=== PATIENT | male | born 1975 | race Caucasian/White ===

== ENCOUNTER 2017-03-30 16:00 | Observation (INO) ==
[2017-03-30] MEDS ORDERED: Naloxone 0.4 MG/ML INJ IVP PRN (17:47)
[2017-03-30] MEDS ORDERED: Ondansetron 4 MG/2 ML VIAL IVP PRN (17:47)
[2017-03-30] MEDS ORDERED: Acetaminophen 325 MG TABLET PO PRN (17:47)
[2017-03-30] MEDS ORDERED: *HR* Morphine 2 MG/ML SYRINGE IVP PRN (17:53)
[2017-03-30] MEDS ORDERED: 0.9 % Sodium Chloride 1,000 ML IVC SCH ×2 (18:00→18:45)
--- NOTE | 2017-03-30 18:50 | Internal Med History&Physical ---
<Dorcas Amaral M - Last Filed: 03/30/17 18:38> Date of Encounter: 03/30/17 Time of Encounter: 18:38 Assessment and Plan (1) Atrial fibrillation Current visit: Yes Status: Acute Patient had syncopal episode today preceded by palpitations and lightheadedness. He was found to be in Afib at [place] ED. Troponin negative at 0.00. Patient converted on his own. He reports only drinking one bottle of water a day and having high caffeine intake with mostly mountain dew the rest of the day. Dehydration and excessive caffeine likely impetus of afib. Patient encouraged to increase water intake and decrease caffeine. Patient's HR still running high in the 90s-low 100s. Will start cardizem 30mg PO [id number]. Cardiology consulted. Continuous patient monitor. Echocardiogram. Qualifiers: Atrial fibrillation type: unspecified Qualified Code(s): I48.91 - Unspecified atrial fibrillation (2) Syncope Current visit: Yes Status: Acute Patient had syncopal episode today preceded by palpitations and lightheadedness. He was found to be in afib at [place] ED. Syncope secondary to arrhythmia/afib. Qualifiers: Syncope type: unspecified Qualified Code(s): R55 - Syncope and collapse (3) Facial trauma Current visit: Yes Status: Acute [place] [facility] during syncopal episode today. CT of head showed acute fractures of left lateral and inferior orbital santana and multiple fractures of left maxillary sinus. ENT consulted. Augmentin for sinusitis prophylaxis. Qualifiers: Encounter type: initial encounter Qualified Code(s): S09.93XA - Unspecified injury of face, initial encounter (4) BRANDON (acute kidney injury) Current visit: Yes Status: Acute Creatinine of 1.33. Patient reports history of kidney stones, most recently 4 years ago, but denies any CKD. He reports drinking only one bottle of water a day followed by mostly Mountain Dew. Likely secondary to dehydration. Patient got 1L bolus at [place] ED. Will give 0.9NS at 100ML/hr overnight. Recheck chemistry in the morning. Patient encouraged to increase water intake and decrease [place] Dew intake. (5) DVT prophylaxis Current visit: Yes Status: Acute anti-embolic stockings. Patient with facial trauma. Will not start anticoagulation due to risk of increasing bleeding or hematoma. Internal Medicine - H&P: HPI Chief complaint: syncope Admitted From: Hospital to Hospital Transfer Plans for Post Hospital Care: Home History of present illness: Mr. Abraham is a 41 year old male with history of kidney stones presented to [place] ED after suffering a syncopal episode at home. Patient reports he was walking in his kitchen when he felt palpitations and lightheadedness, he lost consciousness and fell, hitting his face on the kitchen island. He denies any symptoms prior to this episode. He was unconscious for about 30 seconds, and when he came to, he felt a little "out of it". He denies any chest pain, shortness of breath, fever, chills, nausea, vomiting. Evaluation at [place] included a head CT which showed no acute intracranial hemorrhage, acute fractures of the left lateral and inferior orbital santana and multiple fractures of the left maxillary sinus. He had a laceration under his left eye which was sutured and addressed at the [place] ED. EKG showed atrial fibrillation, which is a new diagnosis for patient. Troponin was negative at 0.00. Creatinine was elevated at 1.33. Patient converted to sinus tachycardia at [place] and he was given 1L fluid bolus. On exam, patient alert and oriented in no acute distress. Heart with regular rate and rhythm. Lungs clear to auscultation bilaterally. No peripheral edema. Left facial swelling and ecchymosis with sutured laceration under left eye. Past Med Surg Social Fam HX - Past Medical History Medical history: kidney stones Psychiatric history: no psych history - Past Surgical History Surgical History: other - Social History Smoking Status: Never smoker Smokeless Tobacco Status: No Alcohol use: none Drug use: none - Family History Mother Hx Family Endocrine Disorder: Yes (DM2) Father Living Status: Still Living Internal Medicine - H&P: Meds Amoxicillin/Clavulanate [Augmentin] 875 mg PO BIDWM #8 tablet 03/31/17 [Rx] Aspirin Enteric Coated [Aspirin EC] 81 mg PO DAILY #30 tablet. 03/31/17 [Rx] HYDROcodone/Acet 5/325 mg [[place] 5-325 mg] 1 tab PO Q6H PRN #7 tab 03/31/17 [Rx] 3 Allergy/AdvReac Type Severity Reaction Status Date / Time No Known Allergies Allergy Verified 09/21/17 12:21 All Systems PM: A 10-system review of systems was performed and is negative for pertinent findings except as documented above in the HPI. - Constitutional Constitutional: no chills, no fever(s), no night sweats - EENT Eyes: no change in vision, no discharge, no pain, no photophobia Ears: no ear discharge, no ear pain, no tinnitus Nose, mouth and throat: no dysphagia, no nasal discharge, no neck pain, no sore throat - Cardiovascular Cardiovascular ROS IM: lightheadedness, palpitations, syncope, no chest pain, no diaphoresis, no dyspnea - Respiratory Respiratory: no cough, no dyspnea, no wheezing, no excessive phlegm production - Gastrointestinal Gastrointestinal: no abdominal pain, no diarrhea, no hematemesis, no hematochezia, no melena, no nausea, no vomiting - Musculoskeletal Musculoskeletal ROS IM: no numbness, no tingling - Integumentary Integumentary IM: no rash, no unusual bruising - Neurological Neurological ROS: no confusion, no convulsions, no focal weakness, no numbness, no tingling, no tremor(s) - Hematologic/Lymphatic Hematologic/Lymphatic: no easy bruising - Head Head exam: Present: normocephalic Additional comments: swelling and ecchymosis under left eye with sutured laceration. - Eye Eye exam: Present: PERRL, conjuntiva pink, sclera anicteric Pupils: Present: PERRL - Neck Neck exam general surgery: Present: supple, trachea midline. Absent: lymphadenopathy - Respiratory Respiratory exam: Present: CTAB. Absent: accessory muscle use, rales, rhonchi, wheezes - Cardiovascular Cardiovascular exam: Present: RRR, +S1, +S2. Absent: diastolic murmur, gallop, rubs, systolic murmur - GI/Abdominal GI/Abdominal exam: Present: normal bowel sounds, soft, no peritoneal signs. Absent: distended, tenderness - Extremities Exam Extremities exam: Present: warm, radial pulses palpable and symmetrical. Absent : calf tenderness, cyanotic, pedal edema - Neurological Exam Neurological exam: Present: CN II-XII intact, oriented X3, no focal deficits. Absent: pronater drift, facial droop, speech deficit - Skin Skin exam: Present: dry, intact Internal Med - H&P Results - Labs Labs: Labs from [facility]: Hgb 14.6 Hct 42.7 wbc 6.5 Plt 246 Na 140 K 3.4 Cl 105 CO2 25 BUN 17 Cr 1.33 Glu 124 trop 0.00 D-dimer 626 <Jermain Poole - Last Filed: 03/31/17 18:46> Date of Encounter: 03/31/17 Internal Medicine - H&P: HPI History of present illness: Mr. Abraham is a 41 year old male All Systems PM: A 10-system review of systems was performed and is negative for pertinent findings except as documented above in the HPI. - Constitutional Vitals: Temp Pulse Resp BP Pulse Ox 98.3 F 83 16 148/91 95 03/31/17 17:03 03/31/17 17:03 03/31/17 17:03 03/31/17 17:03 03/31/17 17:03 Internal Med - H&P Results - Labs CBC & Chem 7: 03/31/17 05:22 03/31/17 05:22 Labs: Short CBC 03/31/17 Range/Units 05:22 WBC 8.1 (4.3-11.1) K/mcL Hgb 13.5 (12.9-16.9) g/dL Hct 42.0 (37.5-50.1) % Plt Count 223 (140-400) K/mcL Neutrophils # 5.5 (1.6-8.9) K/mcL BMP 03/31/17 05:22 Sodium 140 Potassium 4.2 Chloride 107 Carbon Dioxide 26 BUN 16 Creatinine 1.22 Glucose 107 H Calcium 9.2 - Attending Attestation I have personally performed a face to face evaluation on this patient and I discussed the assessment and plan with the nurse practitioner. I have reviewed and agree with the documented care plan. History and Exam by me shows: Mr. Abraham is a 41 year old male with history of kidney stones presented to [place] ED after suffering a syncopal episode at home. Patient reports he was walking in his kitchen when he felt palpitations and lightheadedness, he lost consciousness and fell, hitting his face on the kitchen island. He denies any symptoms prior to this episode. He was unconscious for about 30 seconds, and when he came to, he felt a little "out of it". He denies any chest pain, shortness of breath, fever, chills, nausea, vomiting. Evaluation at [place] included a head CT which showed no acute intracranial hemorrhage, acute fractures of the left lateral and inferior orbital santana and multiple fractures of the left maxillary sinus. He had a laceration under his left eye which was sutured and addressed at the [place] ED. EKG showed atrial fibrillation, which is a new diagnosis for patient. Troponin was negative at 0.00. Creatinine was elevated at 1.33. Patient converted to sinus tachycardia at [place] and he was given 1L fluid bolus. Now pt is in NSR. Gen: A, A, O x 3 Chest : Diminished BS b/l, no crackles, rales Heart : S1 S2 + RRR No murmurs Face : Bruise over Left maxilla region a/p 1. New onset A fib mostly due to stress stop drinking sodas will place him on Cardizem 30mg Q6hr for now CHADSVASC2 score 0.. No anti coag needed other than ASA 2. Left Maxilla and Orbital floor fx ENT consulted
[2017-03-30] MEDS: *HR* HYDROcodone/Acet 5/325 mg TABLET PO PRN (19:46)
[2017-03-31] MEDS: *HR* HYDROcodone/Acet 5/325 mg TABLET PO PRN ×2 (05:16→13:38)
[2017-03-31 05:56] LABS: Basophils % 0.4 %; Eosinophils # 0.1 K/mcL (0.0-0.6); Hemoglobin 13.5 g/dL (12.9-16.9); Immature Granulocytes % 0.5 % (0-4); Lymphocytes # 1.7 K/mcL (0.6-4.6); Lymphocytes % 21.1 %; Mean Corpuscular HGB Conc 32.1 g/dL (31.6-35.5); Mean Corpuscular Volume 80.9 fL (83.0-100.0); Mean Platelet Volume 10.8 fL (9.4-12.4); Monocytes # 0.7 K/mcL (0.0-1.3); Monocytes % 8.7 %; Neutrophils # 5.5 K/mcL (1.6-8.9); Platelet Count 223 K/mcL (140-400); Red Blood Count 5.19 M/mcL (4.19-5.50); Red Cell Distribution Width 12.4 % (11.5-14.5); Segmented Neutrophils % 68.3 %
[2017-03-31 06:19] LABS: BUN/Creatinine Ratio 13 (6-26); Blood Urea Nitrogen 16 mg/dL (8-26); Calcium 9.2 mg/dL (8.6-10.8); Carbon Dioxide 26 mEq/L (19-29); Chloride 107 mEq/L (98-109); Chol/HDL Ratio 6.6 (0-4.9); Cholesterol 190 mg/dL (< 200); Glucose 107 mg/dL (70-99); HDL Cholesterol 29 mg/dL (40-59); LDL Cholesterol,Calculated 124 mg/dL (0-99); Osmolality,Calculated 292 (280-300); Potassium 4.2 mEq/L (3.5-4.5); Sodium 140 mEq/L (136-145); Triglycerides 185 mg/dL (< 150); eGFR For African Americans > 60 (> 60); eGFR For Non-African Americans > 60 (> 60)
--- NOTE | 2017-03-31 09:50 | Internal Med Progress Note ---
<Tati Hartman - Last Filed: 03/31/17 15:53> Date of Encounter: 03/31/17 Time of Encounter: 09:50 - Assessment and plan (1) Atrial fibrillation with RVR Current Visit: Yes Status: Acute Assessment and plan: EKG Afib in ED On telemetry, NSR CHADVASC SCORE - 0 No family history of structural heart disease, sudden or arrhythmia according to pt PLAN: Cardiology on consult, appreciate recs Recommend aspirin 81 mg. Cardio Discussed with ENT, no contraindication to aspirin. TTE pending (2) Syncope Current Visit: Yes Status: Acute Assessment and plan: Syncope with a history of vasovagal syncope and endorsed dehydration and strenuous however atrial fibrillation with RVR on EKG in ED. 24 monitor review shows NSR. No bradycardia or recurrent afib seen on telemetry. AVg HR 86 bpm. Cardio on consult, recommend TTE to assess for structural heart disease. Qualifiers: Syncope type: unspecified Qualified Code(s): R55 - Syncope and collapse (3) Facial trauma Current Visit: Yes Status: Acute Assessment and plan: Left maxillary and orbital nondisplaced fractures secondary to fall due to new onset A fib. Suture laceration in place in L periorbital area, pain at 1/10 Pain currently well controlled. PLAN: ENT on consult, appreciate recs Will continue Augmentin, per recs Qualifiers: Encounter type: initial encounter Qualified Code(s): S09.93XA - Unspecified injury of face, initial encounter (4) BRANDON (acute kidney injury) Current Visit: Yes Status: Acute (5) DVT prophylaxis Current Visit: Yes Status: Acute Assessment and plan: Intermittent compression devices - Subjective Interval history: Patient denies any palpitations. No chest pain. No N/V. Endorses L facial tenderness by periorbital area, rated at a 1/10. States he has also had syncopes associated with dehydration and emotional stress. Asks when he could go home. - Constitutional Vitals: Temp Pulse Resp BP Pulse Ox 98.0 F 71 16 125/75 98 03/31/17 08:17 03/31/17 08:17 03/31/17 08:17 03/31/17 08:17 03/31/17 08:17 General appearance: Present: cooperative, A&O X 3 - Head Head exam: Present: atraumatic, normocephalic - ENT Additional comments: Left periorbital facial swelling and ecchymosis and surrounding erythema. Sutures in place with no oozing, no drainage. EOM without pain. - Respiratory Respiratory exam: Present: CTAB. Absent: accessory muscle use, rales, rhonchi, wheezes - Cardiovascular Cardiovascular exam: Present: RRR, +S1, +S2. Absent: diastolic murmur, gallop, rubs, systolic murmur, tachycardia - GI/Abdominal GI/Abdominal exam: Present: normal bowel sounds, soft, no peritoneal signs. Absent: distended, tenderness Internal Medicine: Result - Labs CBC & Chem 7: 03/31/17 05:22 03/31/17 05:22 Labs: Short CBC 03/31/17 Range/Units 05:22 WBC 8.1 (4.3-11.1) K/mcL Hgb 13.5 (12.9-16.9) g/dL Hct 42.0 (37.5-50.1) % Plt Count 223 (140-400) K/mcL Neutrophils # 5.5 (1.6-8.9) K/mcL BMP 03/31/17 05:22 Sodium 140 Potassium 4.2 Chloride 107 Carbon Dioxide 26 BUN 16 Creatinine 1.22 Glucose 107 H Calcium 9.2 - Impressions EXAMINATION: CT OF THE HEAD WITHOUT CONTRAST 03/30/2017 12:34 pm TECHNIQUE: CT of the head was performed without the administration of intravenous contrast. Dose modulation, iterative reconstruction, and/or weight based adjustment of the mA/kV was utilized to reduce the radiation dose to as low as reasonably achievable. COMPARISON: None HISTORY: ORDERING SYSTEM PROVIDED HISTORY: trauma Recent syncope, acute symptoms, initial study FINDINGS: BRAIN/VENTRICLES: There is no acute intracranial hemorrhage, mass effect or midline shift. No abnormal extra-axial fluid collection. The nair-white differentiation is maintained without evidence of an acute infarct. There is no evidence of hydrocephalus. ORBITS: There are nondisplaced fractures of the lateral left orbital wall. There is associated extraconal air on the left. There is a hairline fracture of the left zygomaticofrontal bone. There are fractures of the left orbital floor, without significant depression. SINUSES: There is layering blood within the left maxillary sinus. There are comminuted fractures of the anterior left maxillary wall. There is a displaced fracture of the lateral left maxillary wall. There is a mildly displaced fracture of the medial left maxillary wall. SOFT TISSUES/SKULL: There is air within the soft tissues of the left face and temporal region, related to recent facial fractures. No acute calvarial fracture. CT/CT head/brain wo con IMPRESSION: 1. No intracranial hemorrhage. 2. Acute fractures of the left lateral and inferior orbital santana, as well as multiple fractures of the left maxillary sinus. No significant depression of the orbital wall fracture. 3. Layering blood in the left maxillary sinus. 4. Left facial laceration. D/ / 03/30/2017 13:05:17 Osvaldo Kim MD / Yuridia Abraham Interpreting Provider: Osvaldo Kim MD INATION: SINGLE VIEW OF THE CHEST 03/30/2017 12:34 pm COMPARISON: None. HISTORY: ORDERING SYSTEM PROVIDED HISTORY: new a fib Passed out while taking at lunch break still feels funny. History of AFib. FINDINGS: Cardiomediastinal silhouette is within normal limits. No pneumothorax or effusion. The lungs are clear. No acute osseous abnormality. XR/XR chest 1V portable IMPRESSION: No acute cardiopulmonary disease. D/ / Sterling Loyd MD / Sterling Loyd MD Interpreting Provider: Sterling Loyd MD Consult Discharge Plan - Plan Referrals: Colin Doherty DO [Partnered Physician] - (Follow up with ENT as needed) Kira Yang MD [Primary Care Provider] - 04/03/17 3:00 pm ( ) <Keith Victoria - Last Filed: 03/31/17 17:25> Date of Encounter: 03/31/17 - Constitutional Vitals: Temp Pulse Resp BP Pulse Ox 98.3 F 83 16 148/91 95 03/31/17 17:03 03/31/17 17:03 03/31/17 17:03 03/31/17 17:03 03/31/17 17:03 Internal Medicine: Result - Labs CBC & Chem 7: 03/31/17 05:22 03/31/17 05:22 Labs: Short CBC 03/31/17 Range/Units 05:22 WBC 8.1 (4.3-11.1) K/mcL Hgb 13.5 (12.9-16.9) g/dL Hct 42.0 (37.5-50.1) % Plt Count 223 (140-400) K/mcL Neutrophils # 5.5 (1.6-8.9) K/mcL BMP 03/31/17 05:22 Sodium 140 Potassium 4.2 Chloride 107 Carbon Dioxide 26 BUN 16 Creatinine 1.22 Glucose 107 H Calcium 9.2 - Attending Attestation I examined this patient and my medical decision-making was reviewed with the Resident Physician. I agree with the documented findings, disposition and treatment plan as described except to the extent set forth below. Cardiology input appreciated. ENT input appreciated. We will follow the recommendations from specialist.
--- NOTE | 2017-03-31 11:22 | Cardiology Consult Note ---
<Zeeshan Flores - Last Filed: 03/31/17 13:37> Date of Encounter: 03/31/17 Time of Encounter: 11:13 Assessment and Plan (1) Atrial fibrillation with RVR Current Visit: Yes Status: Acute Unknown duration. Converted on his own. Now NSR. Agree with oral cardizem. CHADS VASc=0. Recommend aspirin 81 mg. Discussed with ENT, no contraindication to aspirin. Check TTE. TSH normal. Potassium 3.4 and now 4.0. Further recommendations after TTE. (2) Syncope Current Visit: Yes Status: Acute Likely due to combination of atrial fibrillation with RVR and hypovolemia d/t poor water intake. He only drinks soda. History of vasovagal syncopy. Recommend increase water intake. Decrease caffeine. He converted to NSR. 24 monitor review shows NSR. No bradycardia or pauses. No VT. No recurrent afib. AVg HR 86 bpm. Will check TTE to assess for structural heart disease. Qualifiers: Syncope type: unspecified Qualified Code(s): R55 - Syncope and collapse Discussion w patient/family: The assessment and plan as outlined above was discussed with the patient and/or family members who expressed understanding and agreement. All questions were answered. Thank you for involving us in the care of your patient. Please call with any questions. History of Present Illness Consult date: 03/31/17 Requesting physician: Keya Scott Consult reason: syncope, new afib Chief complaint: Syncope History of present illness: Mr. Abraham is a 41 year old male with a history of vasovagal syncope who experienced dizziness and syncopal event. He was at his work when he stood up from his desk and walked a short distance to a break room for lunch when he felt warm and passed out. He fell and hit his face on a countertop and suffered laceration. He presented to [facility] and was found to have atrial fibrillation with RVR, HR 90-120 per ER record. He converted to NSR on his own. He reported drinking Mt Dew all day long. Only drinks one cup of water a day. Labs review revealed BRANDON. He is also found to have orbital santana and maxillary sinus fracture on CT of the head. Past Med Surg Social Fam HX - Past Medical History Medical history: kidney stones Psychiatric history: no psych history - Past Surgical History Surgical History: other - Social History Smoking Status: Never smoker Smokeless Tobacco Status: No Alcohol use: none Drug use: none - Family History Mother Hx Family Endocrine Disorder: Yes (DM2) Father Living Status: Still Living Medications and Allergies No Known Home Drugs 03/30/17 [History] 3 Allergy/AdvReac Type Severity Reaction Status Date / Time No Known Allergies Allergy Verified 03/30/17 12:21 All Systems Review: A 10-system review of systems was performed and is negative for pertinent findings except as documented above in the HPI. Physical Examination Vital Signs, Last 4 Hours Temp Pulse Resp BP Pulse Ox 03/31/17 08:17 98.0 F 71 16 125/75 98 Results 03/31/17 05:22 03/31/17 05:22 Lab Results 03/31/17 03/31/17 05:22 05:22 WBC 8.1 Hgb 13.5 Hct 42.0 Plt Count 223 Sodium 140 Potassium 4.2 Chloride 107 Carbon Dioxide 26 BUN 16 Creatinine 1.22 Glucose 107 H Calcium 9.2 Consult Discharge Plan - Plan Referrals: Colin Doherty DO [Partnered Physician] - (Follow up with ENT as needed) Kira Yang MD [Primary Care Provider] - 04/03/17 3:00 pm ( ) <Keisha Jones - Last Filed: 03/31/17 17:35> Date of Encounter: 03/31/17 Assessment and Plan Discussion w patient/family: The assessment and plan as outlined above was discussed with the patient and/or family members who expressed understanding and agreement. All questions were answered. Thank you for involving us in the care of your patient. Please call with any questions. History of Present Illness History of present illness: Mr. Abraham is a 41 year old male All Systems Review: A 10-system review of systems was performed and is negative for pertinent findings except as documented above in the HPI. Physical Examination Vital Signs, Last 4 Hours Temp Pulse Resp BP Pulse Ox 03/31/17 17:03 98.3 F 83 16 148/91 95 Results 03/31/17 05:22 03/31/17 05:22 Lab Results 03/31/17 03/31/17 05:22 05:22 WBC 8.1 Hgb 13.5 Hct 42.0 Plt Count 223 Sodium 140 Potassium 4.2 Chloride 107 Carbon Dioxide 26 BUN 16 Creatinine 1.22 Glucose 107 H Calcium 9.2 - Attending Attestation I examined this patient and my medical decision-making was reviewed with the Resident Physician. I agree with the documented findings, disposition and treatment plan. Mr. Abraham presents with a syncopal episode accompanied by atrial fibrillation RVR, HR 120s' in the ER. He states that he was in the kitchen having intercourse with his when shortly after he felt warm, diaphoretic and lost consciousness ultimately hitting his head and sustaining left orbital and maxillary nondisplaced fractures. In the ER he was found to have atrial fibrillation, HR 90-120's. At the bedside, he is in his usual state of health wanting to go home. He reports having a history of syncope, approximately 5 times previously attributed to vasovagal etiology. He denies feeling palpitations and has no known dysrhythmia. He denies any family history of atrial fibrillation. Baseline ECG is normal. Troponin negative, TSH normal, other labs unremarkable. Echo has been ordered to rule out structural heart disease. If echo returns without concerning findings, recommend that he follow up for a new consultation with Dr. Babak Cason as an outpatient. He should remain on cardizem and low dose aspirin. Patient is agreeable with the plan.
--- NOTE | 2017-03-31 12:41 | ENT - Consult Note ---
Date of Encounter: 03/31/17 Time of Encounter: 12:39 Assessment and Plan (1) Syncope Current Visit: Yes Status: Acute Qualifiers: Syncope type: unspecified Qualified Code(s): R55 - Syncope and collapse (2) Facial trauma Current Visit: Yes Status: Acute Left maxillary and orbital nondisplaced fractures secondary to fall due to new onset A fib. No hypoglobus, V2 parasthesias, diplopia, or opthalmoplegia. No need for further ENT intervention at this time Agree with abx due to blood in left max sinus to prevent sinusitis. Follow up outpatient as needed Qualifiers: Encounter type: initial encounter Qualified Code(s): S09.93XA - Unspecified injury of face, initial encounter (3) Atrial fibrillation with RVR Current Visit: Yes Status: Acute History of Present Illness Consult date: 03/31/17 Reason for ENT Consult: other (facial trauma s/p fall) History of present illness: Pt is a 41 yo male s/p fall secondary to new onset A fib that has since resolved. During fall, + syncope with head strike to kitchen counter and subsequent facial fractures for which ENT is consulted. Denies nasal obstruction now. There is moderate left periorbital facial swelling. Denies opthalmoplegia, diplopia, or visual field loss. Superficial laceration closed primarily in ED. No other ENT complaints. He denies dizziness or return of his symptoms. Denies current heart palpitations, chest pain, or SOB. Past Med Surg Social Fam HX - Past Medical History Medical history: kidney stones Psychiatric history: no psych history - Past Surgical History Surgical History: other - Social History Smoking Status: Never smoker Smokeless Tobacco Status: No Alcohol use: none Drug use: none - Family History Mother Hx Family Endocrine Disorder: Yes (DM2) Father Living Status: Still Living Medications and Allergies No Known Home Drugs 03/30/17 [History] 3 Allergy/AdvReac Type Severity Reaction Status Date / Time No Known Allergies Allergy Verified 03/30/17 12:21 ENT - ROS All systems PM: reviewed and no additional remarkable complaints except as stated ENT Exam Initial Vital Signs Temp Pulse Resp BP Pulse Ox 98.8 F 93 17 134/83 98 03/30/17 20:30 03/30/17 20:30 03/30/17 20:30 03/30/17 20:30 03/30/17 20:30 - General physical appearance well developed, well nourished, no distress - Eyes PERRL, normal ocular movement - ENT normal pinna, normal nares, normal mucosa (Left periorbital facial swelling and ecchymosis. Cheek laceration repaired. FROM of EOM without pain or diplopia. No chemosis. No hypoglobus.) - Neck no masses, no bruits, trachea midline, no lymphadectomy - Respiratory normal expansion, normal respiratory effort - Abdomen Abdomen: no distended - Integumentary no rash, no growths - Neurologic CN 2-12 grossly intact, normal coordination - Musculoskeletal normal posture - Psychiatric oriented to time, oriented to person, oriented to place Exam Initial Vital Signs Temp Pulse Resp BP Pulse Ox 98.8 F 93 17 134/83 98 03/30/17 20:30 03/30/17 20:30 03/30/17 20:30 03/30/17 20:30 03/30/17 20:30 Results - Labs 03/31/17 05:22 03/31/17 05:22 Abnormal lab results MCV 80.9 fL (83.0-100.0) L 03/31/17 05:22 MCH 26.0 pg (28.0-33.3) L 03/31/17 05:22 Glucose 107 mg/dL (70-99) H 03/31/17 05:22 Triglycerides 185 mg/dL (< 150) H 03/31/17 05:22 LDL Cholesterol, Calc 124 mg/dL (0-99) H 03/31/17 05:22 VLDL Cholesterol, Calc 37 mg/dL (< 31) H 03/31/17 05:22 HDL Cholesterol 29 mg/dL (40-59) L 03/31/17 05:22 Cholesterol/HDL Ratio 6.6 (0-4.9) H 03/31/17 05:22 Diabetes panel 03/31/17 Range/Units 05:22 Sodium 140 (136-145) mEq/L Potassium 4.2 (3.5-4.5) mEq/L Chloride 107 (98-109) mEq/L Carbon Dioxide 26 (19-29) mEq/L BUN 16 (8-26) mg/dL Creatinine 1.22 (0.72-1.25) mg/dL Glucose 107 H (70-99) mg/dL Calcium 9.2 (8.6-10.8) mg/dL Triglycerides 185 H (< 150) mg/dL HDL Cholesterol 29 L (40-59) mg/dL Calcium panel 03/31/17 Range/Units 05:22 Calcium 9.2 (8.6-10.8) mg/dL Pituitary panel 03/31/17 Range/Units 05:22 Sodium 140 (136-145) mEq/L Potassium 4.2 (3.5-4.5) mEq/L Chloride 107 (98-109) mEq/L Carbon Dioxide 26 (19-29) mEq/L BUN 16 (8-26) mg/dL Creatinine 1.22 (0.72-1.25) mg/dL Glucose 107 H (70-99) mg/dL Calcium 9.2 (8.6-10.8) mg/dL Adrenal panel 03/31/17 Range/Units 05:22 Sodium 140 (136-145) mEq/L Potassium 4.2 (3.5-4.5) mEq/L Chloride 107 (98-109) mEq/L Carbon Dioxide 26 (19-29) mEq/L BUN 16 (8-26) mg/dL Creatinine 1.22 (0.72-1.25) mg/dL Glucose 107 H (70-99) mg/dL Calcium 9.2 (8.6-10.8) mg/dL All other labs normal. Consult Discharge Plan - Plan Referrals: Kira Yang MD [Primary Care Provider] - (web request sent on 03/31/17 ) Colin Doherty DO [Partnered Physician] - (Follow up with ENT as needed)
[2017-03-31] MEDS ORDERED: Aspirin Enteric Coated 81 MG Tablet PO SCH (13:45)
[2017-03-31 17:06] VITALS: BP 148/91
--- NOTE | 2017-03-31 17:52 | Discharge Summary ---
<Tati Hartman - Last Filed: 03/31/17 17:46> Date of Encounter: 03/31/17 Time of Encounter: 17:46 - Discharge Diagnosis (1) Atrial fibrillation with RVR Priority: Primary Status: Acute (2) Syncope Priority: Primary Status: Resolved Qualifiers: Syncope type: unspecified Qualified Code(s): R55 - Syncope and collapse (3) Facial trauma Priority: Primary Status: Acute Qualifiers: Encounter type: initial encounter Qualified Code(s): S09.93XA - Unspecified injury of face, initial encounter (4) BRANDON (acute kidney injury) Priority: Secondary Status: Resolved (5) DVT prophylaxis Priority: Secondary Status: Acute - Discharge Medications Prescriptions: Amoxicillin/Clavulanate [Augmentin] 875 mg PO BIDWM #8 tablet Aspirin Enteric Coated [Aspirin EC] 81 mg PO DAILY #30 tablet. HYDROcodone/Acet 5/325 mg [[place] 5-325 mg] 1 tab PO Q6H PRN #7 tab PRN Reason: Pain Home Medications: Amoxicillin/Clavulanate [Augmentin] 875 mg PO BIDWM #8 tablet 03/31/17 [Rx] Aspirin Enteric Coated [Aspirin EC] 81 mg PO DAILY #30 tablet. 03/31/17 [Rx] HYDROcodone/Acet 5/325 mg [[place] 5-325 mg] 1 tab PO Q6H PRN #7 tab 03/31/17 [Rx] Allergies/Adverse Reactions: 3 Allergy/AdvReac Type Severity Reaction Status Date / Time No Known Allergies Allergy Verified 03/30/17 12:21 Procedures/tests Complete & Pending: Procedures Performed prior 72 hours Category Date Time Status EKG [ECG 12 lead ECG] [ECG] Stat Y 03/30/17 17:43 Completed EV echocardiogram Routine Y 03/31/17 11:10 Ordered Date of admission: 03/30/17 17:20 Primary care physician: Kira Yang, Consults: 03/30/17 17:52 Consult to Cardiology [CONS] Routine Comment: Consulting Provider: [facility] [place] Reason for Consult: 41M with new afib and syncope earlier today Call Completed: Yes 03/30/17 18:58 Consult to ENT [CONS] Routine Consulting Provider: [facility] Reason for Consult: 41M with facial fractures after syncopal episode. Call Completed: Yes Discharging clinician: Tati Hartman Anticipated date of discharge: 03/31/17 - Patient Status Disposition: Home, Self-Care Condition: Fair Functional capacity at discharge: independent ambulation Overall status at discharge: patient is progressing back to baseline - Discharge Instructions Follow Up With: Colin Doherty DO [Partnered Physician] - (Follow up with ENT as needed) Kira Yang MD [Primary Care Provider] - 04/03/17 3:00 pm ( ) - Diet and Activity Activity: increase activity as tolerated Diet: advance to your usual diet (refrain from caffeinated, sugary drinks) Interval History: No acute events overnight. No complaints. Denies chest pain or palpitations. Patient insists that he does not want to stay overnight Resident MD recommended pt remain on telemetry overnight. Pt politely declines. Hospital course: Mr. Abraham is a 41 year old male with a history of vasovagal syncope who experienced dizziness and syncopal event. He fell and hit his face on a countertop and suffered laceration. He presented to [facility] and was found to have atrial fibrillation with RVR, HR 90-120 per ER record. He converted to NSR without intervention, per cardiology note. He reported drinking Mt Dew all day long and only one-one cup of water a day. Labs review revealed BRANDON, which resolved with IV fluids. 24 monitor review showed NSR. No bradycardia or pauses. No VT. No recurrent afib. AVg HR [address] of the head demonstrated orbital santana and maxillary sinus fracture. ENT was placed on consult with mo hypoglobus, V2 parasthesias, diplopia, or opthalmoplegian. Recommendation was for follow up outpatient with antibiotics due to blood in left max sinus to prevent sinusitis. - Time Spent with Patient Total time spent providing and/or coordinating discharge services: - Constitutional Vitals: Temp Pulse Resp BP Pulse Ox 98.3 F 83 16 148/91 95 03/31/17 17:03 03/31/17 17:03 03/31/17 17:03 03/31/17 17:03 03/31/17 17:03 General appearance: Present: cooperative, A&O X 3, no acute distress - Head Head exam: Present: atraumatic, normocephalic - ENT Additional comments: Left periorbital facial swelling and ecchymosis and surrounding erythema. Sutures in place with no oozing, no drainage. No apparent pain on EOM. - Respiratory Respiratory exam: Absent: accessory muscle use, respiratory distress, tachypnea - Cardiovascular Cardiovascular exam: Absent: bradycardia, tachycardia - Skin Skin exam: Present: dry, intact (regarding suture) <Keith Victoria P - Last Filed: 03/31/17 18:19> Date of Encounter: 03/31/17 Procedures/tests Complete & Pending: Procedures Performed prior 72 hours Category Date Time Status EKG [ECG 12 lead ECG] [ECG] Stat Y 03/30/17 17:43 Completed EV echocardiogram Routine Y 03/31/17 11:10 Completed Date of admission: 03/30/17 17:20 Primary care physician: Kira Yang, Consults: 03/30/17 17:52 Consult to Cardiology [CONS] Routine Comment: Consulting Provider: [facility] [place] Reason for Consult: 41M with new afib and syncope earlier today Call Completed: Yes 03/30/17 18:58 Consult to ENT [CONS] Routine Consulting Provider: ENT [facility] Reason for Consult: 41M with facial fractures after syncopal episode. Call Completed: Yes Hospital course: Mr. Abraham is a 41 year old male - Time Spent with Patient Total time spent providing and/or coordinating discharge services: - Constitutional Vitals: Temp Pulse Resp BP Pulse Ox 98.3 F 83 16 148/91 95 03/31/17 17:03 03/31/17 17:03 03/31/17 17:03 03/31/17 17:03 03/31/17 17:03 - Attending Attestation I examined this patient and my medical decision-making was reviewed with the Resident Physician. I agree with the documented findings, disposition and treatment plan as described except to the extent set forth below. Cardiology input appreciated. Patient is a follow-up with cardiology/ENT. Patient has been given pain medication altogether 7 tablets.
[2017-04-01] MEDS ORDERED: Diltiazem CD (24hr) 120 MG CAPSULE PO SCH (09:00)
--- NOTE | 2017-04-03 08:35 | Electrocardiograph Report ---
[place] [address] Test Date: 2017-03-30 Pat Name: Sylvain Abraham Department: 2000 Room: 2A Gender: M Kaiako Kohanga Reo: : 1975 Requested By: Dorcas Amaral Order Number: [id number] Reading MD: Balaji Calle DO Measurements Intervals [place] Rate: 90 P: CO: 0 QRS: 4 QRSD: 101 T: 10 QT: 358 QTc: 406 Interpretive Statements ATRIAL FIBRILLATION ABNORMAL RHYTHM ECG Electronically Signed On 04-02-2017 9:43:03 EDT by Balaji Calle DO
== END 2017-03-31 19:05 | disposition home or self-care (01) ==
LOC: 2ANU
PROVIDERS: ADMIT Family Medicine; ATTEND Internal Medicine